=== PATIENT | male | born 1990 | race Caucasian/White ===

== ENCOUNTER 2016-08-10 22:23 | Emergency (ER) | payer BC ==
--- NOTE | 2016-08-11 01:13 | ED CLINICAL REPORT ---
Clinical Report - Physicians/Mid Levels [facility] [address] [place] [address] 08/10/2016 22:25 Patient: JAROD RIGGINS Time Seen: 00:00; initial patient contact. Arrived- By private vehicle. Historian- patient. HISTORY OF PRESENT ILLNESS Chief Complaint: BACK PAIN. It is described as being moderate in degree and radiating to the right lower extremity. The quality is noted to be aching. Modifying factors- worsened by bending over and lifting. Onset was today and it is still present. It was abrupt in onset. No bladder dysfunction, bowel dysfunction, sensory loss or motor loss. Patient notes a recent injury. Mechanism of injury- he was lifting. (gym). Patient denies injury to the head or chest. Similar symptoms previously: Several times. Recent medical care: Not recently seen/assessed. REVIEW OF SYSTEMS No abdominal pain, nausea, vomiting or difficulty with urination. All systems otherwise negative, except as recorded above. PAST HISTORY See nurses notes. SOCIAL HISTORY History of chewing tobacco use. Occasional alcohol use. No drug use. ADDITIONAL NOTES The nursing notes have been reviewed with agreement regarding the chief complaint, PMH and patient medications and allergies. PHYSICAL EXAM Vital Signs: 08/10/2016 22:41 BP: 157/88. HR: 79. RR: 16. O2 saturation: 100%. Temp: 98.0 F. Have been reviewed. Hypertensive. Heart rate normal. Respiratory rate normal. Temperature normal. Oxygen saturation normal. Appearance: Alert. No acute distress. Back: Moderate soft tissue tenderness in the left upper, mid and lower lumbar area. Moderate muscle spasm present in the left lower lumbar area. No vertebral point tenderness or limitation in ROM. Skin: Normal skin color. No rash. Extremities: Extremities exhibit normal ROM. Extremities nontender. Neuro: Oriented X 3. No motor deficit. No sensory deficit. Straight leg raising: negative on the right and negative on the left. Reflex exam: right patellar 2+ and left patellar 2+. LABS, X-RAYS, AND EKG LS-Spine X-rays: Soft tissues normal. No fracture or subluxation. No bony lesion. (Increased stool). Views: AP and lateral. Technique: good. The X-rays were independently viewed by me and interpreted contemporaneously by me. Prior films were not available for comparison. Interpretation time: 01:12. PROGRESS AND PROCEDURES Course of Care: Toradol 60mg IM given. Physical exam findings are improved. Symptoms better. Disposition: Discharged home in good and improved condition. Condition: good. CLINICAL IMPRESSION Muscle strain of the low back. INSTRUCTIONS No lifting greater than 10 lbs until well. Your Current Medications: CONTINUE TAKING THE FOLLOWING MEDICATIONS: None*. Prescription Medications: Baclofen 20 mg: take 1 orally every 8 hours. Dispense thirty (30). No refills. Diclofenac 50 mg tablets: take 1 tablet orally every 8 hours as needed for pain or stiffness. Dispense thirty (30). No refill. Follow-up: Follow up with your doctor in about two days if not better. Call for an appointment. Screening today revealed the patient's blood pressure to be in the hypertensive range. The patient should follow up with a primary care provider for blood pressure management. (Electronically signed by Freddy Wood Dr. 08/11/2016 6:01)
--- NOTE | 2016-08-11 01:13 | ED NURSING NOTES ---
Clinical Report - Nurses [facility] [address] [place] [address] 08/10/2016 22:25 Patient: JAROD RIGGINS TRIAGE Triage time 22:41. Acuity: LEVEL 4. Chief Complaint: BACK PAIN. --22:45 TonyaB, R.N. 22:41 08/10/16. BP: 157/88. HR: 79. RR: 16. O2 saturation: 100%. Temp: 98.0 F. Pain level now 09/01. --22:45 TonyaB, R.N. Weight: 108.8 kg. Height/Length: 68 inches. BMI: 36.5. --22:43 TonyaB, R.N. Medications None. --22:42 TonyaB, R.N. Allergies Iodine. --22:42 TonyaB, R.N. History Arrived by private vehicle. Historian: patient. Accompanied by family and friend. This started today. 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 PAST MEDICAL HX: Tetanus status: up-to-date. Immunizations: up-to-date. SOCIAL HX: Smoker- current status unknown (chews tobacco). Occasional alcohol use. No drug use. No infectious disease exposure. FALL RISK ASSESSMENT: Fall risk assessment completed. No fall risk identified. NUTRITIONAL RISK ASSESSMENT: The nutritional risk assessment revealed no deficiencies. FUNCTIONAL ASSESSMENT: Functional assessment: no impairments noted. LEARNING NEEDS ASSESSMENT: The learning needs assessment revealed no barriers. SKIN INTEGRITY ASSESSMENT: Skin integrity risk assessment completed. No skin integrity risk identified. --22:45 TonyaB, R.N. Interventions ID band on patient. --22:45 TonyaB, R.N. PHYSICAL ASSESSMENT GENERAL / NEURO / PSYCH: Alert. Oriented X 4. Appears in pain. RESPIRATORY: Respirations not labored. Chest nontender. Breath sounds within normal limits. CVS: Normal heart rate and rhythm. Capillary refill less than 2 seconds. GI / : Abdomen soft and nontender. Bowel sounds within normal limits. EXTREMITIES: Sensation intact in extremities. ROM of extremities within normal limits. BACK: Normal inspection of the neck and back. Limited ROM of the back. --22:46 Alejandra Diaz NURSING PROGRESS NOTES Two patient identifiers checked. Call light placed in reach. Side rails up x 1. Bed placed in lowest position. Brakes of bed on. --22:46 Alejandra Diaz 00:19 08/11/2016 Toradol (Ketorolac Tromethamine) IM 60 mg given. Given in the left ventral gluteus. Allergies verified and confirmed 5 rights. --00:19 Alejandra Diaz DISPOSITION / DISCHARGE Departure time: 01:20. No learning barriers present. Discharge instructions provided and reviewed with the patient. Reviewed medication(s) side effects, precautions, dosing and course information. Prescription(s) given to the patient. Treatments reviewed. Reviewed referrals. Activity restrictions reviewed. Work note given. Follow up contact number. Patient verbalized understanding. Written instructions provided in Guatemalan. No diet instructions or stop smoking instructions. The patient was discharged by the physician. He was discharged home and accompanied by field service consultant. He left the Emergency Department ambulatory and via private vehicle. Multi Operation Machine Operator driving. FALL RISK ASSESSMENT: Fall risk assessment completed. No fall risk identified. --01:20 Alejandra Diaz 01:19 08/11/16. BP: 136/81. HR: 74. RR: 18. O2 saturation: 99%. Temp: deferred. Pain level now: 06/03. --01:20 Alejandra Diaz Locked/Released at 08/11/2016 1:20 by Alejandra Diaz
--- NOTE | 2016-08-11 01:13 | ED ORDER SUMMARY ---
..... Patient: JAROD RIGGINS OrderSheet [facility] VisitID: [id number] [address] [place] [address] 25y, M Registration Date/Time: 08/10/2016 ORDER SHEET Weight: 108.8 kg Allergies: Iodine GENERAL ORDERS: Lumbar Spine 2 or 3V Urgent (00:12 08/11/2016 Ady Pearson) (Ack 0:13 IJurca ER Tech1) (0:29 RFay) MEDICATION ORDERS: Toradol IM 60 mg (NOW) (00:12 08/11/2016 Ady Pearson) (0:19 Orlando R.NNilsa) IV FLUIDS: Dilaudid IV 1 mg (HIGH ALERT MEDICATION, NOW) (00:00 08/11/2016 Ady Pearson) (Cancelled: Physician Order0:12 Ady Pearson) ORDER SHEET NOTES: [Electronically signed by Lay Schilling R.N. (:08/11/2016)] [Electronically signed by Freddy Wood Dr. (06:08/11/2016)] [Electronically locked/signed by Lay Schilling R.N. (08/11/2016)]
--- NOTE | 2016-08-11 01:13 | ED ORDER SUMMARY ---
..... Patient: JAROD RIGGINS OrderSheet [facility] VisitID: [id number] [address] [place] [address] 25y, M Registration Date/Time: 08/10/2016 ORDER SHEET Weight: 108.8 kg Allergies: Iodine GENERAL ORDERS: Lumbar Spine 2 or 3V Urgent (00:12 08/11/2016 Ady Pearson) (Ack 0:13 IJurca ER Tech1) (0:29 RFay) MEDICATION ORDERS: Toradol IM 60 mg (NOW) (00:12 08/11/2016 Ady Pearson) (0:19 Orlando R.NNilsa) IV FLUIDS: Dilaudid IV 1 mg (HIGH ALERT MEDICATION, NOW) (00:00 08/11/2016 Ady Pearson) (Cancelled: Physician Order0:12 Ady Pearson) ORDER SHEET NOTES: [Electronically signed by Lay Schilling R.N. (:08/11/2016)] [Electronically signed by Freddy Wood Dr. (06:08/11/2016)] [Electronically locked/signed by Lay Schilling R.N. (08/11/2016)]
--- NOTE | 2016-08-11 01:13 | ED NURSING NOTES ---
Clinical Report - Nurses Located Within [facility] [address] [place] [address] 08/10/2016 22:25 Patient: JAROD RIGGINS TRIAGE Triage time 22:41. Acuity: LEVEL 4. Chief Complaint: BACK PAIN. --22:45 TonyaB, R.N. 22:41 08/10/16. BP: 157/88. HR: 79. RR: 16. O2 saturation: 100%. Temp: 98.0 F. Pain level now 09/01. --22:45 TonyaB, R.N. Weight: 108.8 kg. Height/Length: 68 inches. BMI: 36.5. --22:43 TonyaB, R.N. Medications None. --22:42 TonyaB, R.N. Allergies Iodine. --22:42 TonyaB, R.N. History Arrived by private vehicle. Historian: patient. Accompanied by family and friend. This started today. 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 PAST MEDICAL HX: Tetanus status: up-to-date. Immunizations: up-to-date. SOCIAL HX: Smoker- current status unknown (chews tobacco). Occasional alcohol use. No drug use. No infectious disease exposure. FALL RISK ASSESSMENT: Fall risk assessment completed. No fall risk identified. NUTRITIONAL RISK ASSESSMENT: The nutritional risk assessment revealed no deficiencies. FUNCTIONAL ASSESSMENT: Functional assessment: no impairments noted. LEARNING NEEDS ASSESSMENT: The learning needs assessment revealed no barriers. SKIN INTEGRITY ASSESSMENT: Skin integrity risk assessment completed. No skin integrity risk identified. --22:45 TonyaB, R.N. Interventions ID band on patient. --22:45 TonyaB, R.N. PHYSICAL ASSESSMENT GENERAL / NEURO / PSYCH: Alert. Oriented X 4. Appears in pain. RESPIRATORY: Respirations not labored. Chest nontender. Breath sounds within normal limits. CVS: Normal heart rate and rhythm. Capillary refill less than 2 seconds. GI / : Abdomen soft and nontender. Bowel sounds within normal limits. EXTREMITIES: Sensation intact in extremities. ROM of extremities within normal limits. BACK: Normal inspection of the neck and back. Limited ROM of the back. --22:46 Alejandra Diaz NURSING PROGRESS NOTES Two patient identifiers checked. Call light placed in reach. Side rails up x 1. Bed placed in lowest position. Brakes of bed on. --22:46 Alejandra Diaz 00:19 08/11/2016 Toradol (Ketorolac Tromethamine) IM 60 mg given. Given in the left ventral gluteus. Allergies verified and confirmed 5 rights. --00:19 Alejandra Diaz DISPOSITION / DISCHARGE Departure time: 01:20. No learning barriers present. Discharge instructions provided and reviewed with the patient. Reviewed medication(s) side effects, precautions, dosing and course information. Prescription(s) given to the patient. Treatments reviewed. Reviewed referrals. Activity restrictions reviewed. Work note given. Follow up contact number. Patient verbalized understanding. Written instructions provided in Vietnamese. No diet instructions or stop smoking instructions. The patient was discharged by the physician. He was discharged home and accompanied by customer care associate. He left the Emergency Department ambulatory and via private vehicle. Card Checker driving. FALL RISK ASSESSMENT: Fall risk assessment completed. No fall risk identified. --01:20 Alejandra Diaz 01:19 08/11/16. BP: 136/81. HR: 74. RR: 18. O2 saturation: 99%. Temp: deferred. Pain level now: 06/03. --01:20 Alejandra Diaz Locked/Released at 08/11/2016 1:20 by Alejandra Diaz
--- NOTE | 2016-08-11 06:01 | ED DISCHARGE INSTRUCTIONS ---
Patient: JAROD RIGGINS General Instructions [facility] VisitID: [id number] [place] [address] 25y, M Registration Date/Time: 08/10/2016 Muscle strain of the low back. INSTRUCTIONS No lifting greater than 10 lbs until well. Your Current Medications: CONTINUE TAKING THE FOLLOWING MEDICATIONS: None*. Prescription Medications: Baclofen 20 mg: take 1 orally every 8 hours. Dispense thirty (30). No refills. Diclofenac 50 mg tablets: take 1 tablet orally every 8 hours as needed for pain or stiffness. Dispense thirty (30). No refill. Follow-up: Follow up with your doctor in about two days if not better. Call for an appointment. Screening today revealed the patient's blood pressure to be in the hypertensive range. The patient should follow up with a primary care provider for blood pressure management. ADDITIONAL INFORMATION Back Pain [Acute Or Chronic] Back pain is usually caused by an injury to the muscles or ligaments of the spine. Sometimes the disks that separate each bone in the spine may bulge and cause pain by pressing on a nearby nerve. Back pain may also appear after a sudden twisting/bending force (such as in a car accident), after a simple awkward movement, or lifting something heavy with poor body positioning. In either case, muscle spasm is often present and adds to the pain. Acute back pain usually gets better in one to two weeks. Back pain related to disk disease, arthritis in the spinal joints or spinal stenosis (narrowing of the spinal canal) can become chronic and last for months or years. Unless you had a physical injury (for example, a car accident or fall) X-rays are usually not ordered for the initial evaluation of back pain. If pain continues and does not respond to medical treatment, x-rays and other tests may be performed at a later time. Home Care: You may need to stay in bed the first few days. But, as soon as possible, begin sitting or walking to avoid problems with prolonged bed rest (muscle weakness, worsening back stiffness and pain, blood clots in the legs). When in bed, try to find a position of comfort. A firm mattress is best. Try lying flat on your back with pillows under your knees. You can also try lying on your side with your knees bent up towards your chest and a pillow between your knees. Avoid prolonged sitting. This puts more stress on the lower back than standing or walking. During the first two days after injury, apply an ICE PACK to the painful area for 20 minutes every 2-4 hours. This will reduce swelling and pain. HEAT (hot shower, hot bath or heating pad) works well for muscle spasm. You can start with ice, then switch to heat after two days. Some patients feel best alternating ice and heat treatments. Use the one method that feels the best to you. You may use acetaminophen (Tylenol) or ibuprofen (Motrin, Advil) to control pain, unless another pain medicine was prescribed. [NOTE: If you have chronic liver or kidney disease or ever had a stomach ulcer or GI bleeding, talk with your doctor before using these medicines.] Be aware of safe lifting methods and do not lift anything over 15 pounds until all the pain is gone. Follow Up with your doctor or this facility if your symptoms do not start to improve after one week. Physical therapy may be needed. [NOTE: If X-rays were taken, they will be reviewed by a radiologist. You will be notified of any new findings that may affect your care.] Get Prompt Medical Attention if any of the following occur: Pain becomes worse or spreads to your legs Weakness or numbness in one or both legs Loss of bowel or bladder control Numbness in the groin or genital area You have been given the following additional information: Back Pain (Acute Or Chronic) No lifting greater than 10 lbs until well. (Electronically signed by Freddy Wood Dr. 08/11/2016 6:01)
--- NOTE | 2016-08-11 06:01 | ED MAR SUMMARY ---
..... Medication Administration Record [facility] [address] [place] [address] Patient: JAROD RIGGINS Visit ID: [id number] 25y, M Weight: 108.8 kg Height/Length: 68 in BMI: 36.5 ALLERGIES: Iodine Given 00:19 08/11/2016 Alejandra Diaz Medication Administered: TORADOL [IM] (KETOROLAC TROMETHAMINE), Dose: 60 mg IM. Medication Ordered: Toradol IM 60 mg (NOW).
--- NOTE | 2016-08-11 06:01 | ED MED RECONCILIATION SUMMARY ---
Patient: JAROD RIGGINS Medication Reconciliation Report [facility] VisitID: [id number] [address] [place] [address] 25y, M Registration Date/Time: 08/10/2016 Weight: 108.8 kg Height/Length: 68 in. BMI: 36.5 ALLERGIES: Iodine The patient's Home Medications are listed below: NONE. The source(s) of the original Home Medication information: Not obtained. The following Medications were given to the patient in the Emergency Department: Toradol [IM] IM 60 mg, administered: 08/11/2016 12:19:00 AM The following Medications were prescribed to the patient: Baclofen 20 mg: take 1 orally every 8 hours. Dispense thirty (30). No refills. -- Freddy Wood Dr. Diclofenac 50 mg tablets: take 1 tablet orally every 8 hours as needed for pain or stiffness. Dispense thirty (30). No refill. -- Freddy Wood Dr.
--- NOTE | 2016-08-11 06:01 | ED MED RECONCILIATION SUMMARY ---
Patient: JAROD RIGGINS Medication Reconciliation Report [facility] VisitID: [id number] [address] [place] [address] 25y, M Registration Date/Time: 08/10/2016 Weight: 108.8 kg Height/Length: 68 in. BMI: 36.5 ALLERGIES: Iodine The patient's Home Medications are listed below: NONE. The source(s) of the original Home Medication information: Not obtained. The following Medications were given to the patient in the Emergency Department: Toradol [IM] IM 60 mg, administered: 08/11/2016 12:19:00 AM The following Medications were prescribed to the patient: Baclofen 20 mg: take 1 orally every 8 hours. Dispense thirty (30). No refills. -- Freddy Wood Dr. Diclofenac 50 mg tablets: take 1 tablet orally every 8 hours as needed for pain or stiffness. Dispense thirty (30). No refill. -- Freddy Wood Dr.
--- NOTE | 2016-08-11 06:01 | ED MAR SUMMARY ---
..... Medication Administration Record [facility] [address] [place] [address] Patient: JAROD RIGGINS Visit ID: [id number] 25y, M Weight: 108.8 kg Height/Length: 68 in BMI: 36.5 ALLERGIES: Iodine Given 00:19 08/11/2016 Alejandra Diaz Medication Administered: TORADOL [IM] (KETOROLAC TROMETHAMINE), Dose: 60 mg IM. Medication Ordered: Toradol IM 60 mg (NOW).
--- NOTE | 2016-08-11 06:21 | DIAGNOSTIC IMAGING REPORT ---
PROCEDURE: XR LUMBAR SPINE 2 OR 3 VIEWS INDICATION: TRAUMA/INJURY TECHNIQUE: Three views. COMPARISON: Compared to lumbar spine radiographs on 11/20/2010. FINDINGS: Osseous structures and disc spaces are normal. Previously described possible spondylolysis defect is not clearly identified. No evidence of an acute process or fracture. IMPRESSION: 1. Negative cervical spine.
== END 2016-08-11 01:15 | disposition home or self-care (01) ==
LOC: ED SRH 22:23
DX: S39.012A Strain of muscle, fascia and tendon of lower back, initial encounter (principal); X50.0XXA Overexertion from strenuous movement or load, initial encounter; Y93.B9 Activity, other involving muscle strengthening exercises; Y92.39 Other specified sports and athletic area as the place of occurrence of the external cause; Y99.8 Other external cause status; Z72.0 Tobacco use